=== PATIENT | male | born 1985 | race Caucasian/White ===

== ENCOUNTER 2016-06-07 18:04 | Emergency (ER) | payer OTHER ==
[2016-06-07 20:05] LABS: HEMOGLOBIN 14.1 gm/dl (14.0-17.5); RED BLOOD COUNT 5.37 M/UL (4.20-5.50)
[2016-06-07 20:29] LABS: BUN/CREATININE RATIO 16 (0-10)
== END 2016-06-07 21:17 | disposition home or self-care (01) ==
LOC: ER1 18:04
PROVIDERS: Physician Assistant Medical
DX: R10.84 Generalized abdominal pain (principal); Z88.1 Allergy status to other antibiotic agents; K21.9 Gastro-esophageal reflux disease without esophagitis; Z79.899 Other long term (current) drug therapy
CPT/HCPCS: 36415; 80053; 81001; 82150; 83690; 84484; 85025; 99284